=== PATIENT | female | born 1945 | race Asian ===

== ENCOUNTER 2019-08-31 14:00 | Inpatient (IN) | payer MEDICARE, OTHER ==
[~2019-08-31] VITALS: Ht 154.9 cm; Wt 67.9 kg
[~2019-08-31 14:00] MED LIST: ADV100 IH; ASPI-1149 PO; CHLO120L TP; FAMO20 PO; LEVO50 PO; MULT-1238 PO
[2019-08-31] MEDS ORDERED: SODIUM CHLORIDE 0.9% 1,000 ML IV ONE (14:15)
[2019-08-31] MEDS ORDERED: CefTRIAXone SODIUM 2 GM in DEXTROSE 5%-WATER 50 ML IV ONE (14:15)
[2019-08-31] MEDS ORDERED: ACETAMINOPHEN 500 MG TABLET PO ONE (14:15)
[2019-08-31] MEDS ORDERED: AZITHROMYCIN 500 MG/NS 250 ML IV ONE (14:15)
[2019-08-31 14:49] LABS: ABG BASE EXCESS -2.8 mmol/L (-2.0-3.0); ABG CARBOXYHEMOGLOBIN 0.3 % (0.0-1.5); ABG HCO3 22.8 mmol/L (22.0-26.0); ABG METHEMOGLOBIN 0.4 % (0.0-1.5); ABG OXYGEN CONTENT 14.4 mL/dL (15.0-23.0); ABG OXYGEN SATURATION 97.1 % (95.0-98.0); ABG OXYHEMOGLOBIN 96.4 % (94.0-100.0); ABG PCO2 33 mmHg (35-45); ABG PH 7.433 (7.35-7.450); ABG TOTAL HEMOGLOBIN 10.5 G/dL (12.0-18.0); PO2, ARTERIAL BG 111.1 mmHg (75.0-83.0); SOURCE, BLOOD GAS ARTERIAL
[2019-08-31 14:50] LABS: O2 DEVICE,BLOOD GAS CANNULA (ROOM AIR); SITE, BLOOD GAS RT RADIAL
[2019-08-31 15:10] LABS: BASOPHILS % (AUTO) 0.1 % (0.0-2.0); EOSINOPHILS % (AUTO) 1.8 % (1.0-6.0); HEMOGLOBIN 9.9 g/dL (12.0-16.0); LYMPHOCYTES # (AUTO) 0.7 K/uL (1.0-4.8); LYMPHOCYTES % (AUTO) 9.1 % (22.0-44.0); MEAN CORPUSCULAR HEMOGLOBIN 26.8 pg (26.0-34.0); MEAN CORPUSCULAR HGB CONC 34.1 G/dL (31.0-37.0); MEAN CORPUSCULAR VOLUME 78 fL (80-100); MONOCYTES # (AUTO) 0.3 K/uL (0.1-1.0); MONOCYTES % (AUTO) 4.5 % (2.0-9.0); NEUTROPHILS # (AUTO) 6.1 K/uL (1.8-7.7); NEUTROPHILS % (AUTO) 84.5 % (40.0-70.0); PLATELET COUNT (AUTO) 229 K/uL (150-450); RED CELL DISTRIBUTION WIDTH 15.7 % (11.5-14.5)
[2019-08-31 15:20] LABS: ANION GAP 10 mmol/L (8-16); CALCIUM, TOTAL 7.6 mg/dL (8.8-10.5); CARBON DIOXIDE 25 mmol/L (22-29); CHLORIDE 100 mmol/L (98-107); CREATININE 1.36 mg/dL (0.60-1.30); GLOMERULAR FILTR. RATE CALC 38 mL/min (>60); GLUCOSE,RANDOM 128 mg/dL (70-110); POTASSIUM 4.7 mmol/L (3.5-5.1); SODIUM SERUM 135 mmol/L (136-145); UREA NITROGEN, BLOOD 19 mg/dL (7-18)
[2019-08-31 15:44] LABS: D-DIMER 2.4 mg/L FEU (0.00-0.50)
[2019-08-31 15:46] LABS: LACTIC ACID 1.9 mmol/L (0.4-2.0)
[2019-08-31 15:52] LABS: ALANINE AMINOTRANSFERASE 26 U/L (12-78); ALBUMIN 2.5 g/dL (3.4-5.0); ALKALINE PHOSPHATASE 71 U/L (46-116); ASPARTATE AMINOTRANSFERASE 28 U/L (15-37); BILIRUBIN,TOTAL 0.4 mg/dL (0.1-1.0); CREATINE KINASE, TOTAL ONLY 147 U/L (26-192); FERRITIN 118 ng/mL (8-252); LACTATE DEHYDROGENASE 238 U/L (81-234); PHOSPHORUS 2.9 mg/dL (2.5-4.9); TOTAL PROTEIN, SERUM 8.9 g/dL (6.4-8.2)
[2019-08-31 15:55] LABS: PROTHROMBIN TIME 11.4 SEC (9.4-11.6)
[2019-08-31 15:56] LABS: INR 1.1 (0.9-1.1)
[2019-08-31] MEDS ORDERED: BUSP5TAB20 PO (15:58)
[2019-08-31] MEDS ORDERED: LEVO100 PO (15:58)
[2019-08-31] MEDS ORDERED: OMEP20 PO (15:58)
[2019-08-31] MEDS ORDERED: DENO60DI SQ (15:58)
[2019-08-31] MEDS ORDERED: ATOR10TA84 PO (15:58)
[2019-08-31] MEDS ORDERED: APIX5TAB PO (15:58)
[2019-08-31] MEDS ORDERED: FURO20 PO (15:58)
[2019-08-31] MEDS ORDERED: METO25XL PO (15:58)
[2019-08-31] MEDS ORDERED: SODIUM CHLORIDE 0.9% 100 ML ONE (16:09)
[2019-08-31] MEDS ORDERED: IOVERSOL 350 MG/ML 100 ML VIAL ONE (16:09)
[2019-08-31 17:06] LABS: ERYTHROCYTE SEDIMENTATION RATE 15 MM/HR (0-20)
[2019-08-31 18:44] LABS: THYROID STIMULATING HORMONE 3.61 uIU/mL (0.36-3.74)
[2019-08-31] MEDS: DOCUSATE SODIUM 100 MG CAPSULE PO SCH (20:49)
[2019-08-31] MEDS: ATORVASTATIN CALCIUM 20 MG TABLET PO SCH (20:49)
[2019-08-31] MEDS: APIXABAN 5 MG TABLET PO SCH (21:23)
[2019-08-31] MEDS: ACETAMINOPHEN 325 MG TABLET PO PRN (23:47)
[2019-09-01] MEDS ORDERED: HEPARIN SODIUM,PORCINE 5,000 UNITS/ML VIAL SQ SCH
[2019-09-01 09:00] VITALS: BP 114/69
[2019-09-01] MEDS: APIXABAN 5 MG TABLET PO SCH (10:20)
[2019-09-01] MEDS: ACETAMINOPHEN 325 MG TABLET PO PRN (10:20)
[2019-09-01] MEDS: DOCUSATE SODIUM 100 MG CAPSULE PO SCH ×2 (10:20→20:41)
[2019-09-01] MEDS: FAMOTIDINE 20 MG TABLET PO SCH (10:20)
[2019-09-01 11:11] LABS: BASOPHILS % (AUTO) 0.2 % (0.0-2.0); EOSINOPHILS % (AUTO) 2.1 % (1.0-6.0); HEMATOCRIT 26.5 % (36-46); LYMPHOCYTES # (AUTO) 0.8 K/uL (1.0-4.8); LYMPHOCYTES % (AUTO) 13.3 % (22.0-44.0); MEAN CORPUSCULAR HEMOGLOBIN 26.7 pg (26.0-34.0); MEAN CORPUSCULAR HGB CONC 33.9 G/dL (31.0-37.0); MEAN CORPUSCULAR VOLUME 79 fL (80-100); MONOCYTES # (AUTO) 0.2 K/uL (0.1-1.0); MONOCYTES % (AUTO) 2.7 % (2.0-9.0); NEUTROPHILS # (AUTO) 5.1 K/uL (1.8-7.7); NEUTROPHILS % (AUTO) 81.7 % (40.0-70.0); PLATELET COUNT (AUTO) 213 K/uL (150-450); RED BLOOD CELL COUNT(AUTO) 3.36 MIL/uL (4.00-5.20); RED CELL DISTRIBUTION WIDTH 15.8 % (11.5-14.5)
[2019-09-01 11:47] LABS: ALBUMIN 2.1 g/dL (3.4-5.0); BILIRUBIN,TOTAL 0.4 mg/dL (0.1-1.0); C-REACTIVE PROTEIN QUANT 8.74 mg/dL (0.00-0.30); CALCIUM, TOTAL 7.1 mg/dL (8.8-10.5); CREATININE 1.12 mg/dL (0.60-1.30); POTASSIUM 4.3 mmol/L (3.5-5.1); TOTAL PROTEIN, SERUM 7.9 g/dL (6.4-8.2)
[2019-09-01] MEDS ORDERED: SODIUM CHLORIDE 0.9% 250 ML IV ONE (15:07)
[2019-09-01 16:00] VITALS: BP 111/57
[2019-09-01] MEDS: AZITHROMYCIN 500 MG/NS 250 ML IV SCH (16:35)
[2019-09-01] MEDS: CefTRIAXone 1 GM/DEXTROSE 50 ML IV SCH (18:29)
[2019-09-01] MEDS: ALBUTEROL SULFATE HFA 90 MCG/PUFF 8 GM INHALER IH PRN (19:53)
[2019-09-01] MEDS: ATORVASTATIN CALCIUM 20 MG TABLET PO SCH (20:41)
[2019-09-01] MEDS: ENOXAPARIN SODIUM 80 MG/0.8 ML PF SYRINGE SQ SCH (20:42)
[2019-09-01 21:30] VITALS: BP 107/54
[2019-09-02] MEDS: ACETAMINOPHEN 325 MG TABLET PO PRN ×2 (00:02→16:16)
[2019-09-02 01:15] VITALS: BP 97/50
[2019-09-02 05:16] VITALS: BP 110/60
[2019-09-02 07:08] LABS: BASOPHILS % (AUTO) 0.2 % (0.0-2.0); EOSINOPHILS % (AUTO) 4.4 % (1.0-6.0); HEMATOCRIT 24.9 % (36-46); HEMOGLOBIN 8.5 g/dL (12.0-16.0); LYMPHOCYTES # (AUTO) 0.9 K/uL (1.0-4.8); LYMPHOCYTES % (AUTO) 22.2 % (22.0-44.0); MEAN CORPUSCULAR VOLUME 79 fL (80-100); MONOCYTES # (AUTO) 0.2 K/uL (0.1-1.0); MONOCYTES % (AUTO) 5.5 % (2.0-9.0); NEUTROPHILS # (AUTO) 2.8 K/uL (1.8-7.7); NEUTROPHILS % (AUTO) 67.7 % (40.0-70.0); PLATELET COUNT (AUTO) 196 K/uL (150-450); RED BLOOD CELL COUNT(AUTO) 3.14 MIL/uL (4.00-5.20); RED CELL DISTRIBUTION WIDTH 15.5 % (11.5-14.5)
[2019-09-02 07:28] VITALS: BP 121/53
[2019-09-02 07:34] LABS: ALBUMIN 1.9 g/dL (3.4-5.0); BILIRUBIN,TOTAL 0.3 mg/dL (0.1-1.0); C-REACTIVE PROTEIN QUANT 8.33 mg/dL (0.00-0.30); CALCIUM, TOTAL 7.2 mg/dL (8.8-10.5); CREATININE 1.2 mg/dL (0.60-1.30); POTASSIUM 3.9 mmol/L (3.5-5.1); TOTAL PROTEIN, SERUM 7.2 g/dL (6.4-8.2)
[2019-09-02] MEDS: ENOXAPARIN SODIUM 80 MG/0.8 ML PF SYRINGE SQ SCH ×2 (08:13→20:44)
[2019-09-02] MEDS: FAMOTIDINE 20 MG TABLET PO SCH (08:14)
[2019-09-02] MEDS: BusPIRone HCL 5 MG TABLET PO SCH ×3 (08:14→20:45)
[2019-09-02] MEDS: DOCUSATE SODIUM 100 MG CAPSULE PO SCH ×2 (08:14→20:45)
[2019-09-02 11:24] VITALS: BP 112/45
[2019-09-02] MEDS: AZITHROMYCIN 500 MG/NS 250 ML IV SCH (16:25)
[2019-09-02 16:43] VITALS: BP 91/57
[2019-09-02] MEDS: CefTRIAXone 1 GM/DEXTROSE 50 ML IV SCH (17:43)
[2019-09-02 20:22] VITALS: BP 104/57
[2019-09-02] MEDS: ATORVASTATIN CALCIUM 20 MG TABLET PO SCH (20:45)
[2019-09-02] MEDS: ALBUTEROL SULFATE HFA 90 MCG/PUFF 8 GM INHALER IH PRN (20:57)
[2019-09-03] VITALS (7 sets, daily range): BP systolic 103–132; BP diastolic 51–102
[2019-09-03] MEDS: ACETAMINOPHEN 325 MG TABLET PO PRN ×3 (00:43→20:28)
[2019-09-03 08:12] LABS: BASOPHILS % (AUTO) 0.2 % (0.0-2.0); EOSINOPHILS % (AUTO) 2.7 % (1.0-6.0); HEMATOCRIT 27.1 % (36-46); HEMOGLOBIN 9.2 g/dL (12.0-16.0); LYMPHOCYTES # (AUTO) 1.2 K/uL (1.0-4.8); LYMPHOCYTES % (AUTO) 21.4 % (22.0-44.0); MEAN CORPUSCULAR HEMOGLOBIN 26.5 pg (26.0-34.0); MEAN CORPUSCULAR HGB CONC 33.9 G/dL (31.0-37.0); MEAN CORPUSCULAR VOLUME 78 fL (80-100); MONOCYTES # (AUTO) 0.2 K/uL (0.1-1.0); MONOCYTES % (AUTO) 3.9 % (2.0-9.0); NEUTROPHILS # (AUTO) 4.1 K/uL (1.8-7.7); NEUTROPHILS % (AUTO) 71.8 % (40.0-70.0); PLATELET COUNT (AUTO) 228 K/uL (150-450); RED BLOOD CELL COUNT(AUTO) 3.46 MIL/uL (4.00-5.20); RED CELL DISTRIBUTION WIDTH 15.8 % (11.5-14.5)
[2019-09-03 08:18] LABS: CALCIUM, TOTAL 7.4 mg/dL (8.8-10.5); CREATININE 1.05 mg/dL (0.60-1.30); POTASSIUM 4.1 mmol/L (3.5-5.1)
[2019-09-03] MEDS: ENOXAPARIN SODIUM 80 MG/0.8 ML PF SYRINGE SQ SCH ×2 (09:16→20:35)
[2019-09-03] MEDS: DOCUSATE SODIUM 100 MG CAPSULE PO SCH ×2 (09:18→21:00)
[2019-09-03] MEDS: BusPIRone HCL 5 MG TABLET PO SCH ×3 (09:18→20:28)
[2019-09-03] MEDS: FAMOTIDINE 20 MG TABLET PO SCH (09:18)
[2019-09-03] MEDS: ALBUTEROL SULFATE HFA 90 MCG/PUFF 8 GM INHALER IH PRN ×2 (09:23→20:29)
[2019-09-03] MEDS: AZITHROMYCIN 500 MG/NS 250 ML IV SCH (15:37)
[2019-09-03] MEDS: PIPERACILLIN SODIUM/TAZOBACTAM 2.25 GM in DEXTROSE 5%-WATER 50 ML IV SCH ×2 (18:00→22:49)
[2019-09-03] MEDS: ATORVASTATIN CALCIUM 20 MG TABLET PO SCH (20:27)
[2019-09-03] MEDS: DOXYCYCLINE HYCLATE 100 MG in DEXTROSE 5%-WATER 100 ML IV SCH (23:34)
[2019-09-03] MEDS: OSELTAMIVIR PHOSPHATE 30 MG CAPSULE PO SCH (23:53)
[2019-09-04] MEDS: LEVOFLOXACIN 750 MG/D5% WATER 150 ML IV SCH (00:30)
[2019-09-04 03:33] VITALS: BP 101/54
[2019-09-04] MEDS: PIPERACILLIN SODIUM/TAZOBACTAM 2.25 GM in DEXTROSE 5%-WATER 50 ML IV SCH ×3 (04:55→16:05)
[2019-09-04 06:41] LABS: INFLUENZA TYPE A NEGATIVE FOR TYPE A (NEGATIVE); INFLUENZA TYPE B NEGATIVE FOR TYPE B (NEGATIVE)
[2019-09-04 07:11] LABS: BASOPHILS % (AUTO) 0.1 % (0.0-2.0); EOSINOPHILS % (AUTO) 3.2 % (1.0-6.0); HEMATOCRIT 25.5 % (36-46); HEMOGLOBIN 8.6 g/dL (12.0-16.0); LYMPHOCYTES # (AUTO) 0.5 K/uL (1.0-4.8); LYMPHOCYTES % (AUTO) 9.5 % (22.0-44.0); MEAN CORPUSCULAR HEMOGLOBIN 26.6 pg (26.0-34.0); MEAN CORPUSCULAR HGB CONC 33.8 G/dL (31.0-37.0); MEAN CORPUSCULAR VOLUME 79 fL (80-100); MONOCYTES # (AUTO) 0.3 K/uL (0.1-1.0); MONOCYTES % (AUTO) 5.6 % (2.0-9.0); NEUTROPHILS # (AUTO) 4.1 K/uL (1.8-7.7); NEUTROPHILS % (AUTO) 81.6 % (40.0-70.0); PLATELET COUNT (AUTO) 228 K/uL (150-450); RED BLOOD CELL COUNT(AUTO) 3.24 MIL/uL (4.00-5.20); RED CELL DISTRIBUTION WIDTH 15.5 % (11.5-14.5)
[2019-09-04 07:31] LABS: BILIRUBIN,TOTAL 0.4 mg/dL (0.1-1.0); C-REACTIVE PROTEIN QUANT 9.19 mg/dL (0.00-0.30); CALCIUM, TOTAL 7.3 mg/dL (8.8-10.5); CREATININE 1.31 mg/dL (0.60-1.30); TOTAL PROTEIN, SERUM 7.9 g/dL (6.4-8.2)
[2019-09-04 08:20] VITALS: BP 139/70
[2019-09-04] MEDS: FAMOTIDINE 20 MG TABLET PO SCH (09:12)
[2019-09-04] MEDS: ACETAMINOPHEN 325 MG TABLET PO PRN ×3 (09:12→21:00)
[2019-09-04] MEDS: OSELTAMIVIR PHOSPHATE 30 MG CAPSULE PO SCH (09:12)
[2019-09-04] MEDS: ENOXAPARIN SODIUM 80 MG/0.8 ML PF SYRINGE SQ SCH ×2 (09:12→20:32)
[2019-09-04] MEDS: DOCUSATE SODIUM 100 MG CAPSULE PO SCH ×2 (09:12→20:30)
[2019-09-04] MEDS: BusPIRone HCL 5 MG TABLET PO SCH ×3 (09:12→20:31)
[2019-09-04] MEDS: ALBUTEROL SULFATE HFA 90 MCG/PUFF 8 GM INHALER IH PRN ×2 (09:23→15:56)
[2019-09-04] MEDS: DOXYCYCLINE HYCLATE 100 MG in DEXTROSE 5%-WATER 100 ML IV SCH ×2 (11:04→23:56)
[2019-09-04 11:14] VITALS: BP 119/59
[2019-09-04] MEDS ORDERED: BUDESONIDE 180 MCG/INH INHALER [120] IH ONE (15:15)
[2019-09-04] MEDS: BUDESONIDE 180 MCG/INH INHALER [120] IH SCH ×2 (15:50→20:59)
[2019-09-04 15:53] VITALS: BP 133/73
[2019-09-04] MEDS: MethylPREDNISolone SOD SUCC 40 MG/ML VIAL IVP SCH (20:30)
[2019-09-04] MEDS: ATORVASTATIN CALCIUM 20 MG TABLET PO SCH (20:31)
[2019-09-04 21:02] VITALS: BP 138/69
[2019-09-05] VITALS (7 sets, daily range): BP systolic 103–137; BP diastolic 58–71
[2019-09-05] MEDS: MethylPREDNISolone SOD SUCC 40 MG/ML VIAL IVP SCH ×4 (00:02→21:09)
[2019-09-05 07:21] LABS: EOSINOPHILS % (AUTO) 0 % (1.0-6.0); HEMATOCRIT 26.4 % (36-46); LYMPHOCYTES # (AUTO) 0.3 K/uL (1.0-4.8); LYMPHOCYTES % (AUTO) 4.9 % (22.0-44.0); MEAN CORPUSCULAR HEMOGLOBIN 26.3 pg (26.0-34.0); MEAN CORPUSCULAR HGB CONC 33.9 G/dL (31.0-37.0); MEAN CORPUSCULAR VOLUME 78 fL (80-100); MONOCYTES # (AUTO) 0.1 K/uL (0.1-1.0); MONOCYTES % (AUTO) 1.8 % (2.0-9.0); NEUTROPHILS # (AUTO) 5.3 K/uL (1.8-7.7); PLATELET COUNT (AUTO) 249 K/uL (150-450); RED BLOOD CELL COUNT(AUTO) 3.41 MIL/uL (4.00-5.20); RED CELL DISTRIBUTION WIDTH 15.7 % (11.5-14.5)
[2019-09-05 07:31] LABS: NEUTROPHILS % (AUTO) 93.3 % (40.0-70.0)
[2019-09-05 08:15] LABS: BILIRUBIN,TOTAL 0.3 mg/dL (0.1-1.0); C-REACTIVE PROTEIN QUANT 11.56 mg/dL (0.00-0.30); CALCIUM, TOTAL 7.5 mg/dL (8.8-10.5); CREATININE 1.12 mg/dL (0.60-1.30); POTASSIUM 4.2 mmol/L (3.5-5.1); TOTAL PROTEIN, SERUM 8.4 g/dL (6.4-8.2)
[2019-09-05] MEDS: FAMOTIDINE 20 MG TABLET PO SCH (08:19)
[2019-09-05] MEDS: BusPIRone HCL 5 MG TABLET PO SCH ×3 (08:19→21:11)
[2019-09-05] MEDS: DOCUSATE SODIUM 100 MG CAPSULE PO SCH ×2 (08:20→21:11)
[2019-09-05] MEDS: ACETAMINOPHEN 325 MG TABLET PO PRN (08:21)
[2019-09-05] MEDS: BUDESONIDE 180 MCG/INH INHALER [120] IH SCH ×2 (10:35→21:16)
[2019-09-05] MEDS: DOXYCYCLINE HYCLATE 100 MG in DEXTROSE 5%-WATER 100 ML IV SCH (12:49)
[2019-09-05] MEDS: ENOXAPARIN SODIUM 80 MG/0.8 ML PF SYRINGE SQ SCH ×2 (12:50→21:15)
[2019-09-05 15:32] LABS: ORGANISM ID Not indicated.; S PNEUMO SOURCE Urine; STREP PNEUMONIAE AG URINE Negative (Negative); STREP.PNEUMO BODY FLUID CULT. Not indicated.
[2019-09-05] MEDS: ATORVASTATIN CALCIUM 20 MG TABLET PO SCH (21:11)
[2019-09-05] MEDS: ALBUTEROL SULFATE HFA 90 MCG/PUFF 8 GM INHALER IH PRN (21:17)
[2019-09-05] MEDS: LEVOFLOXACIN 750 MG/D5% WATER 150 ML IV SCH (23:25)
[2019-09-06] VITALS (7 sets, daily range): BP systolic 104–123; BP diastolic 51–68
[2019-09-06] MEDS: DOXYCYCLINE HYCLATE 100 MG in DEXTROSE 5%-WATER 100 ML IV SCH ×2 (00:36→12:50)
[2019-09-06 07:12] LABS: BASOPHILS % (AUTO) 0.1 % (0.0-2.0); EOSINOPHILS % (AUTO) 0 % (1.0-6.0); HEMATOCRIT 25.4 % (36-46); HEMOGLOBIN 8.4 g/dL (12.0-16.0); LYMPHOCYTES # (AUTO) 0.4 K/uL (1.0-4.8); MEAN CORPUSCULAR HEMOGLOBIN 25.7 pg (26.0-34.0); MEAN CORPUSCULAR HGB CONC 33.1 G/dL (31.0-37.0); MEAN CORPUSCULAR VOLUME 78 fL (80-100); MONOCYTES # (AUTO) 0.3 K/uL (0.1-1.0); MONOCYTES % (AUTO) 2.6 % (2.0-9.0); NEUTROPHILS # (AUTO) 11.2 K/uL (1.8-7.7); PLATELET COUNT (AUTO) 279 K/uL (150-450); RED BLOOD CELL COUNT(AUTO) 3.27 MIL/uL (4.00-5.20); RED CELL DISTRIBUTION WIDTH 15.5 % (11.5-14.5)
[2019-09-06 07:34] LABS: NEUTROPHILS % (AUTO) 94.3 % (40.0-70.0)
[2019-09-06] MEDS: BusPIRone HCL 5 MG TABLET PO SCH ×3 (08:12→20:29)
[2019-09-06] MEDS: FAMOTIDINE 20 MG TABLET PO SCH (08:12)
[2019-09-06] MEDS: ENOXAPARIN SODIUM 80 MG/0.8 ML PF SYRINGE SQ SCH ×2 (08:13→20:30)
[2019-09-06] MEDS: DOCUSATE SODIUM 100 MG CAPSULE PO SCH ×3 (08:13→21:00)
[2019-09-06] MEDS: MethylPREDNISolone SOD SUCC 40 MG/ML VIAL IVP SCH ×2 (08:13→20:29)
[2019-09-06] MEDS: ACETAMINOPHEN 325 MG TABLET PO PRN (08:13)
[2019-09-06] MEDS: BUDESONIDE 180 MCG/INH INHALER [120] IH SCH ×2 (08:14→20:29)
[2019-09-06 10:08] LABS: CALCIUM, TOTAL 7.6 mg/dL (8.8-10.5); CREATININE 1.16 mg/dL (0.60-1.30); POTASSIUM 4.1 mmol/L (3.5-5.1)
[2019-09-06 10:10] LABS: C-REACTIVE PROTEIN QUANT 5.57 mg/dL (0.00-0.30)
[2019-09-06] MEDS: MULTIVITAMINS WITH MINERALS, THERAPEUTIC TABLET PO SCH (12:50)
[2019-09-06] MEDS ORDERED: CLOTRIMAZOLE 1% 10 ML SOLUTION TP SCH (13:30)
[2019-09-06] MEDS: CLOTRIMAZOLE 1% 15 GM CREAM TP SCH ×2 (16:14→20:30)
[2019-09-06] MEDS: FERROUS SULFATE 325 MG EC TABLET PO SCH (16:14)
[2019-09-06] MEDS: ATORVASTATIN CALCIUM 20 MG TABLET PO SCH (20:29)
[2019-09-07] MEDS: DOXYCYCLINE HYCLATE 100 MG in DEXTROSE 5%-WATER 100 ML IV SCH ×2 (00:49→10:38)
[2019-09-07 04:48] VITALS: BP 132/78
[2019-09-07 08:09] VITALS: BP 134/98
[2019-09-07] MEDS: BusPIRone HCL 5 MG TABLET PO SCH ×2 (08:14→15:07)
[2019-09-07] MEDS: FERROUS SULFATE 325 MG EC TABLET PO SCH (08:14)
[2019-09-07] MEDS: MULTIVITAMINS WITH MINERALS, THERAPEUTIC TABLET PO SCH (08:14)
[2019-09-07] MEDS: DOCUSATE SODIUM 100 MG CAPSULE PO SCH (08:14)
[2019-09-07] MEDS: BUDESONIDE 180 MCG/INH INHALER [120] IH SCH (08:14)
[2019-09-07] MEDS: FAMOTIDINE 20 MG TABLET PO SCH (08:14)
[2019-09-07] MEDS: CLOTRIMAZOLE 1% 15 GM CREAM TP SCH (08:15)
[2019-09-07 08:21] LABS: EOSINOPHILS % (AUTO) 0.1 % (1.0-6.0); HEMATOCRIT 26.6 % (36-46); HEMOGLOBIN 9.1 g/dL (12.0-16.0); LYMPHOCYTES # (AUTO) 0.6 K/uL (1.0-4.8); LYMPHOCYTES % (AUTO) 5.2 % (22.0-44.0); MEAN CORPUSCULAR HEMOGLOBIN 26.7 pg (26.0-34.0); MEAN CORPUSCULAR HGB CONC 34.1 G/dL (31.0-37.0); MEAN CORPUSCULAR VOLUME 78 fL (80-100); MONOCYTES # (AUTO) 0.6 K/uL (0.1-1.0); MONOCYTES % (AUTO) 5.4 % (2.0-9.0); NEUTROPHILS # (AUTO) 9.7 K/uL (1.8-7.7); PLATELET COUNT (AUTO) 319 K/uL (150-450); RED CELL DISTRIBUTION WIDTH 15.7 % (11.5-14.5)
[2019-09-07] MEDS: ENOXAPARIN SODIUM 80 MG/0.8 ML PF SYRINGE SQ SCH (08:22)
[2019-09-07 08:31] LABS: C-REACTIVE PROTEIN QUANT 2.75 mg/dL (0.00-0.30); CALCIUM, TOTAL 7.4 mg/dL (8.8-10.5); CREATININE 1.21 mg/dL (0.60-1.30); POTASSIUM 4.4 mmol/L (3.5-5.1)
[2019-09-07 08:54] LABS: NEUTROPHILS % (AUTO) 89.3 % (40.0-70.0)
[2019-09-07] MEDS ORDERED: PredniSONE 10 MG TABLET PO SCH (09:00)
[2019-09-07 10:42] VITALS: BP 112/58
[2019-09-07] MEDS ORDERED: ENOX60DI8 SQ (14:18)
[2019-09-07] MEDS ORDERED: PRED10 PO (14:19)
[2019-09-07] MEDS ORDERED: PRED20 PO (14:19)
[2019-09-07 14:54] VITALS: BP 157/64
== END 2019-09-07 16:30 | disposition home or self-care (01) | DRG 871 ==
LOC: EDUNIT# 14:11 → EMS 14:20 → 5N 17:44
PROVIDERS: ADMIT Internal Medicine; ATTEND Internal Medicine
DX: A41.9 Sepsis, unspecified organism (principal); J18.9 Pneumonia, unspecified organism; N17.9 Acute kidney failure, unspecified; J44.0 Chronic obstructive pulmonary disease with (acute) lower respiratory infection; D68.61 Antiphospholipid syndrome; J45.901 Unspecified asthma with (acute) exacerbation; E03.9 Hypothyroidism, unspecified; J84.10 Pulmonary fibrosis, unspecified; Z68.28 Body mass index [BMI] 28.0-28.9, adult; Z86.718 Personal history of other venous thrombosis and embolism; Z86.73 Personal history of transient ischemic attack (TIA), and cerebral infarction without residual deficits; D72.810 Lymphocytopenia; J44.9 Chronic obstructive pulmonary disease, unspecified; M32.9 Systemic lupus erythematosus, unspecified; I77.6 Arteritis, unspecified; R41.89 Other symptoms and signs involving cognitive functions and awareness; Z20.828 Contact with and (suspected) exposure to other viral communicable diseases
CPT/HCPCS: 36600; 71275; 74176; 82728; 82805; 83605; 83615; 83735; 84100; 84145; 84443; 85379; 85651; 86140; 86738; 87040; 87420; 87449; 87804; 87899; 93005; 93306; 93970; 99291; J0456; J0696; J1650; J1956; J2543; J2920; J3490; J3535; J7030; J7050; J7060